=== PATIENT | male | born 1995 | race African-American/Black ===

== ENCOUNTER 2018-02-10 02:05 | Emergency (ER) | payer SELFPAY | END 2018-02-10 04:21 | disposition home or self-care (01) | LOC: EDH 02:05 | DX: S00.11XA Contusion of right eyelid and periocular area, initial encounter (principal); S00.81XA Abrasion of other part of head, initial encounter; W50.0XXA Accidental hit or strike by another person, initial encounter; Y93.89 Activity, other specified; Y92.511 Restaurant or cafe as the place of occurrence of the external cause; Y99.8 Other external cause status | CPT/HCPCS: 70450; 70486 ==